=== PATIENT | female | born 1955 | race Caucasian/White ===

== ENCOUNTER 2025-02-08 13:43 | Outpatient (RCR) | payer MEDICARE, SELFPAY ==
--- NOTE | 2025-02-08 14:13 | PTNOTE_ITS ---
PT OP Initial Eval Patient Information Outpatient Physical Therapy Treatment Date: 02/08/25 Visit Reasons: Multiple sclerosis Medical Diagnosis: G35 Treatment Dx #1: MS Start of Care: 02/08/25 Date of Onset: 2020 Smoking Status Smoking Status: Never smoker Initial Assessment Subjective: Pt is 69 yr old female with MS diagnosis reports she is dragging her feet when she walks and the LE's feel weak and the neck hurts. This limits cooking and HH chore tolerance. PLOF: pt was independent with functional mobility and standing tolerance not limited. PMH: HTN, thyroidism, cancer Pt goal: more strength in arms and legs Objective: Gait: L foot scissors and drags on R foot during swing phase, stance foot passes swing foot Strength: B knees: 4/5 Ankle DF: 4/5 Eyes closed: steady [employer] Officer strength: R: 40 lbs, L: 20 lbs Hip flexion: R: 4/5, L: 3+/[address]: able to get to 180 deg then felt headache Tandem stance: immediate balance with L foot fwd unsteady Assessment: Pt presentation consistent with referring Dx. Pt requires skilled therapy to meet goals and has fair rehab potential. Short Term and Senior Living Goals 1. Ind with HEP 2. Ambulate with wider ALCON and without hitting L foot on R foot during swing phase 3. Improved L hand vocational education professional strength to at least 30 lbs 4. Improved standing tolerance to cook to at least 30 mins Treatment Plan 90 day POC Gait training, Therex, Therapeutic Activities, Modalities as indicated Frequency and Duration: 2x a week for 24 Rx sessions plus the evaluation Certification Dates: 02/08/25 to 05/10/25 Procedure Charges OP PT Eval Mod Complex 30 minutes: Yes
== END 2025-02-12 23:59 | disposition home or self-care (01) ==
LOC: CPTX 13:43
PROVIDERS: PCP Family Medicine; Referring Provider Family Medicine; Visit Provider Family Medicine
DX: G35 Multiple sclerosis (principal); R53.1 Weakness; I10 Essential (primary) hypertension
CPT/HCPCS: 97162

== ENCOUNTER 2025-03-13 11:30 | Outpatient (RCR) | payer MEDICARE, SELFPAY ==
--- NOTE | 2025-02-13 13:55 | PTNOTE_ITS ---
PT Outpatient Daily Note OP Daily Note Outpatient Physical Therapy Treatment Date: 02/13/25 Visit Reasons: MS Subjective: Pt c/o hand weakness and notices she drags her feet at times. Objective: Please see flow sheet for ther ex list. Assessment: Interventions given alternating sitting and standing to maximize pt participation. Plan: Continue with poC. 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 If greater than 11 percent modifier is required. Method II: Divide the total time of care provided to patient by 10 (round to the nearest whole number) and add 1 min. to set the minimum time requirement. If treatment total was 60 min., then 10% of 6 min PT CQ modifier applied: CQ Modifier applied Procedure Charges Therapeutic Exercise 30 minutes: Yes
--- NOTE | 2025-02-15 14:29 | PT.ODAYNRPT ---
PT Outpatient Daily Note OP Daily Note Outpatient Physical Therapy Treatment Date: 02/15/25 Visit Reasons: MS Subjective: Fatigue with exercise Objective: See F/S for therex Assessment: Unsteady in tandem stance with head turns Plan: Continue per POC Length of Time (minutes) of Treatment: 30 Minutes Procedure Charges Therapeutic Exercise 30 minutes: Yes
--- NOTE | 2025-02-20 13:38 | PT.ODAYNRPT ---
PT Outpatient Daily Note OP Daily Note Outpatient Physical Therapy Treatment Date: 02/20/25 Visit Reasons: MS Subjective: LE fatigue with exercise Objective: See F/S for therex Assessment: Unsteady in tandem stance with head turns Plan: Continue per POC Length of Time (minutes) of Treatment: 30 Minutes Procedure Charges Therapeutic Exercise 30 minutes: Yes
--- NOTE | 2025-02-27 17:56 | PT.ODAYNRPT ---
PT Outpatient Daily Note OP Daily Note Outpatient Physical Therapy Treatment Date: 02/27/25 Visit Reasons: MS Subjective: LE fatigue with exercise Objective: See F/S for therex Assessment: Unsteady in tandem stance with head turns worse with L foot back Plan: Continue per POC Length of Time (minutes) of Treatment: 30 Minutes Procedure Charges Therapeutic Exercise 30 minutes: Yes
--- NOTE | 2025-03-01 13:14 | PT.ODAYNRPT ---
PT Outpatient Daily Note OP Daily Note Outpatient Physical Therapy Treatment Date: 03/01/25 Visit Reasons: MS Subjective: LE fatigue with exercise Objective: See F/S for therex Assessment: Normally unsteady in tandem stance with head turns worse with L foot back better today Plan: Continue per POC Length of Time (minutes) of Treatment: 30 Minutes Procedure Charges Therapeutic Exercise 30 minutes: Yes
--- NOTE | 2025-03-06 13:42 | PT.ODAYNRPT ---
PT Outpatient Daily Note OP Daily Note Outpatient Physical Therapy Treatment Date: 03/06/25 Visit Reasons: MS Subjective: Her neck and shoulders have been sore Objective: See F/S for therex Assessment: Fwd head and shoulder posture may contribute to neck and shoulder discomfort. Plan: Continue per POC Length of Time (minutes) of Treatment: 30 Minutes Procedure Charges Therapeutic Exercise 30 minutes: Yes
--- NOTE | 2025-03-08 18:17 | PT.ODAYNRPT ---
PT Outpatient Daily Note OP Daily Note Outpatient Physical Therapy Treatment Date: 03/08/25 Visit Reasons: MS Subjective: More fatigue lately Objective: See F/S for therex Assessment: Pt able to step over hurdles today in parallel bars without LOB Plan: Continue per POC Length of Time (minutes) of Treatment: 30 Minutes Procedure Charges Therapeutic Exercise 30 minutes: Yes
--- NOTE | 2025-03-13 13:06 | PT.ODAYNRPT ---
PT Outpatient Daily Note OP Daily Note Outpatient Physical Therapy Treatment Date: 03/13/25 Visit Reasons: MS Subjective: More fatigue lately. Some dizziness after the bar balance activities Objective: See F/S for therex Assessment: Pt able to step over hurdles today in parallel bars without LOB but tandem stance is difficult with L foot forward Plan: Continue per POC Length of Time (minutes) of Treatment: 30 Minutes Procedure Charges Therapeutic Exercise 30 minutes: Yes
== END 2025-03-14 23:59 | disposition home or self-care (01) ==
LOC: CPTX 11:30
PROVIDERS: PCP Family Medicine; Referring Provider Family Medicine; Visit Provider Family Medicine
DX: G35 Multiple sclerosis (principal); R53.1 Weakness; I10 Essential (primary) hypertension
CPT/HCPCS: 97110

== ENCOUNTER 2025-03-29 11:30 | Outpatient (RCR) | payer MEDICARE, MEDICAID, SELFPAY ==
--- NOTE | 2025-03-20 10:36 | PT.ODS1RPT ---
PT OP Progress/Discharge Note Date of Service: 03/20/25 Progress Note/DC Note Progress Note/Discharge Note: Progress Note Patient Information Visit Reasons: MS Service Continue Service or Discharge: Continue Service Status Subjective: Overall better balance since starting therapy and standing tolerance to 20 mins Objective: Gait pattern: symmetrical without scissoring Tandem stance time: 10 seconds ea foot Assessment: Pt has attended the eval and 07/27 Rx sessions with good progress with goals. Pt ambulates with wider ALCON and doesn't scissor gait. She has improved standing tolerance with cooking and would benefit from continued therapy to meet goals. Improved balance in tandem stance to 10 seconds without LOB. Plan: Continue per POC to 24 sessions Procedure Charges Therapeutic Exercise 30 minutes: Yes
--- NOTE | 2025-03-22 12:01 | PT.ODAYNRPT ---
PT Outpatient Daily Note OP Daily Note Outpatient Physical Therapy Treatment Date: 03/22/25 Visit Reasons: MS Subjective: More fatigue lately attributed to stress Objective: See F/S for therex Assessment: Pt is ambulating with more asymmetry today Plan: Continue per POC Length of Time (minutes) of Treatment: 30 Minutes Procedure Charges Therapeutic Exercise 30 minutes: Yes
--- NOTE | 2025-03-27 12:16 | PTNOTE_ITS ---
PT Outpatient Daily Note OP Daily Note Outpatient Physical Therapy Treatment Date: 03/27/25 Visit Reasons: MS Subjective: Pt is grocery shopping and doing ADL's independently Objective: See F/S for therex Quality Project Manager strength: R: 60 lbs, L: 53 lbs Assessment: Good improvement with neighborhood aide strength on L from 20 lbs to 53 lbs today Plan: Reassess Length of Time (minutes) of Treatment: 30 Minutes Procedure Charges Therapeutic Exercise 30 minutes: Yes
--- NOTE | 2025-03-29 12:30 | PTNOTE_ITS ---
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 Pt ambulates with wider ALCON and doesn't scissor gait or catch a foot on the other. She has improved standing tolerance with cooking but is a little shy of the goal of 30 minutes. Improved balance in tandem stance to 10 seconds without LOB. Pt has improved L hand retail merchandiser technician strength to more than meet the goal of 30 lbs. Plan: D/C with HEP Procedure Charges Therapeutic Exercise 30 minutes: Yes
== END 2025-04-14 23:59 | disposition home or self-care (01) ==
LOC: CPTX 11:30
PROVIDERS: PCP Family Medicine; Referring Provider Family Medicine; Visit Provider Family Medicine
DX: G35 Multiple sclerosis (principal); I10 Essential (primary) hypertension
CPT/HCPCS: 97110

== ENCOUNTER → 2025-04-18 | Outpatient (CLI) | payer MEDICARE, MEDICAID, SELFPAY ==
--- NOTE | 2025-04-18 08:00 | XR_ITS ---
Examination: MRI of brain without intravenous contrast. MRI brain with intravenous contrast. Date and time of exam:April 18, 2025 0844 hours Comparison January 25, 2024 INDICATIONS: Diagnosis multiple sclerosis, blurred vision dizziness numbness in the extremities history Technique: Multiple axial and sagittal images of the brain to been obtained. Siemens high-resolution 1.52 Mare short bore scanner utilized. Sagittal sections, T1 weighted images, TR 500, TE 14, are performed. Axial sections proton-density and T2-weighted images have been obtained. Inversion recovery axial images, TR 9260, TE 111, TR 2500. Diffusion weighted images, axial sections, TR 4800, TE 128, B value 1000. Axial sections, ADC map, TR 4800, TE 128. Axial and coronal images were also obtained post 18 cc gadolinium administered intravenously. Findings:: Enlargement of the sella turcica is not present. The optic chiasm and infundibular stalk are not remarkable. There is no localized enlargement of the medulla or mahamed. Fourth ventricle and cerebellar tonsils appear normal in position. No subacute area of hemorrhage density is seen. Fourth ventricle is midline. Mass in the cerebellopontine angle region is not evident. 7th and 8th nerve complexes exhibit symmetry Globes are symmetrical Orbital musculature including medial lateral rectus muscles do not exhibit abnormality Increased white matter signal is prominent Effacement of the cortical sulcal markings is not identified. Mass effect upon the ventricular system is not identified. Diffusion-weighted images demonstrate no focus of restricted diffusion Contrast images demonstrate no abnormal cerebellar or cerebral enhancement Impression: Negative for acute hemorrhage mass effect or midline shift No acute infarct Prominent foci increased signal in the white matter, clinical correlation advised
== END | disposition home or self-care (01) ==
PROVIDERS: PCP Family Medicine; Referring Provider Psychiatry & Neurology Neurology; Visit Provider Psychiatry & Neurology Neurology
DX: R90.82 White matter disease, unspecified (principal); G35 Multiple sclerosis
CPT/HCPCS: 70553; A9579

== ENCOUNTER 2025-08-03 12:09 | Emergency (ER) | payer MEDICARE, MEDICAID, SELFPAY ==
[2025-08-03 12:17] VITALS: BP 134/75; PULSE 69; RESP 18; TEMP 36.6; O2SAT 97
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
[2025-08-03 12:46] VITALS: PULSE 76; RESP 18; O2SAT 98; BMI 31.0
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
[2025-08-03] MEDS: KETOROLAC INJ 30 MG/ML VIAL IVP (13:06)
[2025-08-03 14:14] VITALS: BP 122/53; PULSE 62; RESP 16; TEMP 36.6; O2SAT 98
== END 2025-08-03 14:16 | disposition home or self-care (01) ==
PROVIDERS: Emergency Provider Family Medicine; PCP Family Medicine
DX: S80.01XA Contusion of right knee, initial encounter (principal); V89.9XXA Person injured in unspecified vehicle accident, initial encounter
CPT/HCPCS: 73560; 96374; 99283; J1885